=== PATIENT | female | born 1990 | race Caucasian/White ===

== ENCOUNTER 2022-02-05 11:59 | Inpatient (IN) | payer OTHER, SELFPAY ==
--- NOTE | ~2022-02-05 | CT_ITS ---
EXAMINATION: CT ABDOMEN AND PELVIS WITH CONTRAST CLINICAL INFORMATION: Abdominal pain. Change in bowel habits. COMPARISON: Three 1020 TECHNIQUE: Multidetector volumetric images were obtained from the superior aspect of the liver through the pubic symphysis following administration 85 mL of Omnipaque 350 intravenous contrast. Sagittal and coronal reformatted images were obtained on the technologist's workstation. Oral contrast: No This CT examination was performed using dose optimization techniques as appropriate, variously including the following: *Automated exposure control *Adjustment of mA and/or kV according to patient size (this includes techniques or standardized protocols for targeted exams where dose is matched to indication/reason for exam; i.e. extremities or head) *Use of iterative reconstruction technique DLP: 616 mGy-cm FINDINGS: LUNG BASES: The visualized lung bases are unremarkable. LIVER, GALLBLADDER, AND BILIARY TREE: The liver is normal in size, shape, and attenuation. Focal fatty infiltration along the falciform. No focal hepatic lesion or biliary ductal dilatation is present. The gallbladder is unremarkable with no evidence of radiopaque gallstones, gallbladder wall thickening, or obvious pericholecystic inflammatory changes. PANCREAS: Unremarkable. SPLEEN: Unremarkable. ADRENAL GLANDS: Unremarkable. KIDNEYS AND URETERS: The kidneys are normal in size, shape, and attenuation. No hydronephrosis, hydroureter, or calculi seen. No perinephric stranding. BLADDER: Unremarkable. GASTROINTESTINAL TRACT: The stomach is unremarkable. Normal caliber small bowel. No obstruction. Normal appendix. There is wall thickening of the left hemicolon. ABDOMINAL WALL: No significant hernia is appreciated. LYMPH NODES: Normal. VASCULAR: Unremarkable. PELVIC VISCERA: The uterus and adnexa are unremarkable. OSSEOUS STRUCTURES: Unremarkable. CT/CT abdomen pelvis w IV con IMPRESSION: Wall thickening of the left hemicolon suggestive of colitis, likely infectious or inflammatory. Fleischner guidelines were followed.
[2022-02-05 12:07] VITALS: BP 119/68; PULSE 82; RESP 18; O2SAT 98; BMI 34.2
[2022-02-05 13:12] LABS: MANUAL DIFF FLAG NO
[2022-02-05 13:17] LABS: Basophils Absolute Auto 0.1 X10*3/uL (0.0-0.2); Basophils Percent Auto 0.3 % (0-2); Eosinophils Absolute Auto 0.1 X10*3/uL (0.0-0.4); Eosinophils Percent Auto 0.8 % (0-4); Hemoglobin 14.3 g/dl (12.0-16.0); Imm Gran Abs Auto 0.06 X10*3/uL (0.00-0.03); Imm Gran Pct Auto 0.4 % (0.0-0.4); Lymphocytes Absolute Auto 2.6 X10*3/uL (1.2-4.9); Mean Corpuscular HGB Conc 32.5 g/dl (31.0-35.0); Mean Corpuscular Volume 83.2 fL (80.0-98.0); Mean Platelet Volume 11.3 fL (9.4-12.3); Monocytes Absolute Auto 1.2 X10*3/uL (0.1-1.2); Monocytes Percent Auto 7.7 % (2-11); Neutrophils Absolute Auto 11.4 x10*3/uL (2.0-8.3); Neutrophils Percent Auto 73.8 % (45-73); Platelet Count 341 X10*3/uL (160-400); Red Blood Count 5.29 X10*6/uL (4.20-5.50); Red Cell Distribution Width 14.1 % (11.0-16.0); White Blood Count 15.5 X10*3/uL (4.8-10.8)
[2022-02-05 13:32] LABS: Anion Gap 13 (12-20); Blood Urea Nitrogen 9 mg/dL (9-16); Calcium 9.4 mg/dL (8.4-10.2); Carbon Dioxide 22 mmol/L (22-29); Chloride 109 mmol/L (96-108); Creatinine Clr Calc Pharmacy 75.9; Estimated Glomerular Filt Rate > 60; Glucose Random 88 mg/dL (60-115); Potassium 4.1 mmol/L (3.3-5.1); Sodium 140 mmol/L (135-145)
[2022-02-05 20:47] VITALS: BP 105/73; PULSE 83; RESP 18; O2SAT 100
--- NOTE | 2022-02-05 21:31 | ED.GENADULT ---
HPI - General Adult General Chief complaint: Nausea/Vomiting/Diarrhea Stated complaint: Abd pain, blood in stool Time Seen by Provider: 02/05/22 21:29 Source: patient Mode of arrival: ambulatory Limitations: no limitations History of Present Illness HPI narrative: 31 year old female with a PMHx of depression who presents to the ED with diarrhea. The patient tells me that since November she has had persistent, worsening diarrhea, difuse weakness and fatigue, worse this week however. She currently has diarrhea about 10-15x per day and states that it is completely liquid, she states sometimes she feels bowel movements coming on so fast that she doesnt make it to the bathroom, due to how quickly it comes out and sudden urge. She also noted marielos blood in her stool yesterday, not today. She saw her PCP who tested her for C.diff with inconclusive results. She has received multiple courses of antibiotics for this including augmentin, cipro, vanco, and flagyl. She states that none of these have helped and that the diarrhea has become so bad that she sometimes cannot control her bowels. She also notes generalized abdominal pain and tells me she has lost 20lbs since November. She has had occasional chest pain as well, but denies chest pain currently. She denies any shortness of breath, fevers, chills, headaches, dizziness, changes in vision, extremity pain, or back pain. Related Data Allergies Allergy/AdvReac Type Severity Reaction Status Date / Time No Known Allergies Allergy Unverified 02/08/20 16:04 [No Known Allergies*] Review of Systems Review of Systems: Constitutional : No Weight loss, No Fever, No Chills, + Fatigue, + Malaise ENT/Mouth : No sore throat, No Rhinorrhea Eyes: No Eye Pain, No Swelling, No Redness Cardiovascular : No Chest Pain, No SOB, No Dyspnea on Exertion, No Orthopnea, No Edema, No Palpitations Respiratory : No Cough, No Sputum, No Wheezing Gastrointestinal : No Nausea, No Vomiting, + Diarrhea, No Constipation, + abdominal Pain, + Hematochezia, No Melena Genitourinary : No Dysuria, No Urinary Frequency, No Hematuria, Musculoskeletal : No joint pain, No Myalgias, No Joint Swelling Skin : No Skin Lesions, No rash Neuro : + Weakness, No Numbness, No Dizziness, No Headache Psych : No Anxiety/Panic, No Depression All other systems reviewed and are negative Yes all other systems are reviewed and are negative [facility] Past Medical History Attestation statement: The following information was validated with the patient. Source: old records reviewed and nursing notes reviewed Social History Social History Advance Directives: No Physical Exam ED Vital Signs: Vital Signs - 24 hr 02/05/22 12:07 02/05/22 20:47 02/06/22 00:00 Temperature 98.6 F Pulse Rate 82 83 71 Respiratory Rate 18 18 16 Blood Pressure 119/68 105/73 94/56 L Pulse Oximetry 98 100 100 Oxygen Delivery Method Room Air Room Air Room Air BMI result Body Mass Index 34.2 vss Appearance: Alert.? Oriented X3.? No acute distress.?Resting comfortably on stretcher, fatigued appearing. Head: Normocephalic, atraumatic, no step-offs or deformities Eyes: Pupils equal, round and reactive to light.? Neck: Normal inspection.? Neck supple.? CVS: Normal heart rate and rhythm.? Pulses normal.? Respiratory: No respiratory distress.? Breath sounds normal.? Abdomen: Soft. Mild, generalized tenderness.?No CVA tenderness. +BS. Skin: Skin warm and dry.? Normal skin color.? Normal skin turgor.? Extremities: No lower extremity edema.? No calf ttp. 5/5 strength to bilateral upper and lower extremities Neuro: Oriented X 3.? No motor deficit.? No sensory deficit. CN 2-12 intact Course Reevaluation(s) Reevaluation #1: Patient noted to have leukocytosis on CBC, however not concern for sepsis at this time. Chemistry at patient's baseline. CT abd/pelvis and stool studies pending. Time: 21:52 Reevaluation #2: Patient's stool studies pending, lactic and cultures, and CT of the abdomen and pelvis pending. I will wait to initiate antibiotics until stool samples are back as this can determine which antibiotic agent is preferred. Time: 00:11 Reevaluation #3: Latic negative. Patient noted to have C diff. will be given 125 mg of p.o. vancomycin, leukocytes in stool. CT scan pending. Patient's pressure soft, fluids ordered. Time: 01:18 Additional Reevaluation(s): 0129 CT of the abdomen and pelvis with wall thickening of the left chadwick colon suggestive of colitis, which is consistent with patient's history, physical examination and positive C diff test. Patient will be admitted to the hospitalist team for further intervention and treatment. Medical Decision Making MDM Narrative Medical decision making narrative: 21:45 31 y/o F presenting with 2 months of diarrhea and generalized abdominal pain. Has been on multiple abx including Augmentin, Cipro, Flagyl, Vanco. Inconclusive C.diff test per PCP. 20 lb weight loss since November. PE remarkable for tired appearing female, no acute distress. Mild generalized abdominal tenderness, no peritonitis. Plan to obtain basic labs, CT abd/pelvis, stool cultures. Suspect C.diff or other infectious colitis at this time. Less likely IBD such as UC or Crohn's. Medical Records Medical records reviewed: Yes I reviewed the patient's medical records. Lab Data Lab results reviewed: Yes I reviewed the patient's lab results. Result diagrams: 02/05/22 13:02/05/22 13:01 Labs: Lab Results 02/05/22 02/05/22 02/05/22 Range/Units 13:01 13:01 21:53 WBC 15.5 H (4.8-10.8) X10*3/uL RBC 5.29 (4.20-5.50) X10*6/uL Hgb 14.3 (12.0-16.0) g/dl Hct 44.0 (37.0-47.0) % MCV 83.2 (80.0-98.0) fL MCH 27.0 (27.0-33.0) pg MCHC 32.5 (31.0-35.0) g/dl RDW 14.1 (11.0-16.0) % Plt Count 341 (160-400) X10*3/uL MPV 11.3 (9.4-12.3) fL Immature Gran % (Auto) 0.4 (0.0-0.4) % Neut % (Auto) 73.8 H (45-73) % Lymph % (Auto) 17.0 L (20-40) % [place] % (Auto) 7.7 (2-11) % Eos % (Auto) 0.8 (0-4) % Baso % (Auto) 0.3 (0-2) % Lymph # (Auto) 2.6 (1.2-4.9) X10*3/uL [place] # (Auto) 1.2 (0.1-1.2) X10*3/uL Eos # (Auto) 0.1 (0.0-0.4) X10*3/uL Baso # (Auto) 0.1 (0.0-0.2) X10*3/uL Abs Immat Gran (auto) 0.06 H (0.00-0.03) X10*3/uL Absolute Neuts (auto) 11.4 H (2.0-8.3) x10*3/uL Absolute Nucleated RBC 0.000 (0.0-0.012) X10*3/uL Nucleated RBC % (auto) 0.0 (0.0-0.2) /100WBC Sodium 140 (135-145) mmol/L Potassium 4.1 (3.3-5.1) mmol/L Chloride 109 H (96-108) mmol/L Carbon Dioxide 22 (22-29) mmol/L Anion Gap 13 (12-20) BUN 9 (9-16) mg/dL Creatinine 1.00 (0.5-1.4) mg/dL Estim Creat Clear Calc 75.9 Estimated GFR > 60 Random Glucose 88 (60-115) mg/dL Lactic Acid (0.5-2.0) mmol/L Calcium 9.4 (8.4-10.2) mg/dL Total Bilirubin 0.3 (0.0-1.0) mg/dL Direct Bilirubin < 0.2 (0.0-0.5) mg/dL AST 15 (5-31) U/L ALT 22 (0-31) U/L Alkaline Phosphatase 64 (39-117) U/L C-Reactive Protein 0.72 H (< or = 0.50) mg/dL Total Protein 6.9 (6.5-8.0) g/dL Albumin 4.0 (3.5-5.0) g/dL Lipase 22 (8-78) U/L Beta HCG, Quant < 2 mIU/mL Urine Color Dark Yellow Urine Appearance Cloudy Urine pH 5.5 (5.0-9.0) Ur Specific [place] >= 1.030 H (1.005-1.025) Urine Protein Trace (Neg-Trace) mg/dL Urine Glucose (UA) Negative (Negative) mg/dL Urine Ketones 15 (Negative) mg/dL Urine Blood Negative (Negative) Urine Nitrite Negative (Negative) Ur Leukocyte Esterase Small (1+) H (Negative) Urine RBC 0-2 (0-2) /HPF Urine WBC 11-20 H (0-5) /HPF Ur Squamous Epith Cells 11-20 (0-2) /HPF Calcium Oxalate Crystal Present Urine Bacteria 2+ (None Seen) Hyaline Casts 3-5 (0-2) /LPF Urine Test (NEGATIVE) Stool Leukocytes, Qual (NEGATIVE) C. difficile Tox B Gene (Negative) C. difficile Toxin A&B (Negative) C. difficile Interpret 02/05/22 02/05/22 02/05/22 Range/Units 21:53 23:31 23:31 WBC (4.8-10.8) X10*3/uL RBC (4.20-5.50) X10*6/uL Hgb (12.0-16.0) g/dl Hct (37.0-47.0) % MCV (80.0-98.0) fL MCH (27.0-33.0) pg MCHC (31.0-35.0) g/dl RDW (11.0-16.0) % Plt Count (160-400) X10*3/uL MPV (9.4-12.3) fL Immature Gran % (Auto) (0.0-0.4) % Neut % (Auto) (45-73) % Lymph % (Auto) (20-40) % [place] % (Auto) (2-11) % Eos % (Auto) (0-4) % Baso % (Auto) (0-2) % Lymph # (Auto) (1.2-4.9) X10*3/uL [place] # (Auto) (0.1-1.2) X10*3/uL Eos # (Auto) (0.0-0.4) X10*3/uL Baso # (Auto) (0.0-0.2) X10*3/uL Abs Immat Gran (auto) (0.00-0.03) X10*3/uL Absolute Neuts (auto) (2.0-8.3) x10*3/uL Absolute Nucleated RBC (0.0-0.012) X10*3/uL Nucleated RBC % (auto) (0.0-0.2) /100WBC Sodium (135-145) mmol/L Potassium (3.3-5.1) mmol/L Chloride (96-108) mmol/L Carbon Dioxide (22-29) mmol/L Anion Gap (12-20) BUN (9-16) mg/dL Creatinine (0.5-1.4) mg/dL Estim Creat Clear Calc Estimated GFR Random Glucose (60-115) mg/dL Lactic Acid (0.5-2.0) mmol/L Calcium (8.4-10.2) mg/dL Total Bilirubin (0.0-1.0) mg/dL Direct Bilirubin (0.0-0.5) mg/dL AST (5-31) U/L ALT (0-31) U/L Alkaline Phosphatase (39-117) U/L C-Reactive Protein (< or = 0.50) mg/dL Total Protein (6.5-8.0) g/dL Albumin (3.5-5.0) g/dL Lipase (8-78) U/L Beta HCG, Quant mIU/mL Urine Color Urine Appearance Urine pH (5.0-9.0) Ur Specific [place] (1.005-1.025) Urine Protein (Neg-Trace) mg/dL Urine Glucose (UA) (Negative) mg/dL Urine Ketones (Negative) mg/dL Urine Blood (Negative) Urine Nitrite (Negative) Ur Leukocyte Esterase (Negative) Urine RBC (0-2) /HPF Urine WBC (0-5) /HPF Ur Squamous Epith Cells (0-2) /HPF Calcium Oxalate Crystal Urine Bacteria (None Seen) Hyaline Casts (0-2) /LPF Urine Test NEGATIVE (NEGATIVE) Stool Leukocytes, Qual MOD: 3-9/OIF (NEGATIVE) C. difficile Tox B Gene POSITIVE A* (Negative) C. difficile Toxin A&B Positive A* (Negative) C. difficile Interpret SEE NOTE 02/06/22 Range/Units 00:27 WBC (4.8-10.8) X10*3/uL RBC (4.20-5.50) X10*6/uL Hgb (12.0-16.0) g/dl Hct (37.0-47.0) % MCV (80.0-98.0) fL MCH (27.0-33.0) pg MCHC (31.0-35.0) g/dl RDW (11.0-16.0) % Plt Count (160-400) X10*3/uL MPV (9.4-12.3) fL Immature Gran % (Auto) (0.0-0.4) % Neut % (Auto) (45-73) % Lymph % (Auto) (20-40) % [place] % (Auto) (2-11) % Eos % (Auto) (0-4) % Baso % (Auto) (0-2) % Lymph # (Auto) (1.2-4.9) X10*3/uL [place] # (Auto) (0.1-1.2) X10*3/uL Eos # (Auto) (0.0-0.4) X10*3/uL Baso # (Auto) (0.0-0.2) X10*3/uL Abs Immat Gran (auto) (0.00-0.03) X10*3/uL Absolute Neuts (auto) (2.0-8.3) x10*3/uL Absolute Nucleated RBC (0.0-0.012) X10*3/uL Nucleated RBC % (auto) (0.0-0.2) /100WBC Sodium (135-145) mmol/L Potassium (3.3-5.1) mmol/L Chloride (96-108) mmol/L Carbon Dioxide (22-29) mmol/L Anion Gap (12-20) BUN (9-16) mg/dL Creatinine (0.5-1.4) mg/dL Estim Creat Clear Calc Estimated GFR Random Glucose (60-115) mg/dL Lactic Acid 0.5 (0.5-2.0) mmol/L Calcium (8.4-10.2) mg/dL Total Bilirubin (0.0-1.0) mg/dL Direct Bilirubin (0.0-0.5) mg/dL AST (5-31) U/L ALT (0-31) U/L Alkaline Phosphatase (39-117) U/L C-Reactive Protein (< or = 0.50) mg/dL Total Protein (6.5-8.0) g/dL Albumin (3.5-5.0) g/dL Lipase (8-78) U/L Beta HCG, Quant mIU/mL Urine Color Urine Appearance Urine pH (5.0-9.0) Ur Specific [place] (1.005-1.025) Urine Protein (Neg-Trace) mg/dL Urine Glucose (UA) (Negative) mg/dL Urine Ketones (Negative) mg/dL Urine Blood (Negative) Urine Nitrite (Negative) Ur Leukocyte Esterase (Negative) Urine RBC (0-2) /HPF Urine WBC (0-5) /HPF Ur Squamous Epith Cells (0-2) /HPF Calcium Oxalate Crystal Urine Bacteria (None Seen) Hyaline Casts (0-2) /LPF Urine Test (NEGATIVE) Stool Leukocytes, Qual (NEGATIVE) C. difficile Tox B Gene (Negative) C. difficile Toxin A&B (Negative) C. difficile Interpret Critical Care Time Critical Care Time Critical Care Time: Yes Total Critical Care Time: 35 Attestation: I attest to this time spent taking care of the patient, obtaining history, physical, reviewing labs, imaging, speaking to my attending, Discharge Plan Discharge Clinical Impression: Clostridium difficile infection, Diarrhea, Abdominal pain, Fatigue, Weakness Patient Disposition: Admitted As Inpatient
[2022-02-05 22:03] LABS: Appearance Urine Cloudy; Color Urine Dark Yellow; Glucose Urine UA Negative (Negative); Leukocyte Esterase Urine Small (1+) (Negative); Nitrite Urine Negative (Negative); PH 5.5 (5.0-9.0); Specific Gravity - Urine >= 1.030 (1.005-1.025); UMIC TRIGGER UACC YES; Urine Blood Negative (Negative); Urine Ketones 15 mg/dL (Negative); Urine Protein Trace mg/dL (Neg-Trace)
[2022-02-05 22:06] LABS: UPreg QC Valid YES; Urine Pregnancy NEGATIVE (NEGATIVE)
--- NOTE | 2022-02-05 22:25 | ECG_ITS ---
Test Reason : A/P Blood Pressure : / mmHG Vent. Rate : 069 BPM Atrial Rate : 069 BPM P-R Int : 170 ms QRS Dur : 072 ms QT Int : 390 ms P-R-T Axes : 047 059 040 degrees QTc Int : 417 ms Normal sinus rhythm Normal ECG When compared with ECG of 04-AUG-2019 00:01, No significant change was found Referred By: Esteban Shannon Electronically Signed By:CARRINGTON CHAPMAN
[2022-02-05 22:40] LABS: Bacteria Urine 2+ (None Seen); Calcium Oxalate Crystals Urine Present; RBC Urine 0-2 /HPF (0-2); UACC Culture Trigger YES
[2022-02-05 22:43] LABS: HCG Quantitative < 2 mIU/mL
[2022-02-05 22:44] LABS: Alanine Aminotransferase 22 U/L (0-31); Alkaline Phosphatase 64 U/L (39-117); Aspartate Amino Transferase 15 U/L (5-31); Bilirubin Direct < 0.2 mg/dL (0.0-0.5); Bilirubin Total 0.3 mg/dL (0.0-1.0); Lipase 22 U/L (8-78); Total Protein 6.9 g/dL (6.5-8.0)
--- NOTE | 2022-02-05 23:00 | P.HPHOSP_ITS ---
History of Present Illness Date of Service: 02/05/22 Chief Complaint: diarrhea 31-year-old female with a past medical history of anxiety, depression presented to the hospital with a chief complaint of diarrhea. Patient reports that in November she had cellulitis and was on Augmentin; followed by she started to have diarrhea which has been not improving or worsens. Has intermittent episodes of diarrhea and has few days of resolution in between. Was treated for presumed C diff as outpatient in December of 2021. This time patient reports he has been having diarrhea for the past 1 week. Has been gradually worsening. Has intermittent episodes of crampy abdominal pain. Also has nausea and vomiting. Has decreased oral intake for the past 2 days. Denies any chest pain or palpitations. Reports she noted blood in her stool yesterday and today she has slightly decreased blood in the stool. Quantity was small in both episodes. Denies any concerns for food poisoning. Denies any fever chills cough or sputum production. Review of all other systems is negative except mentioned above ER course: Per ER team patient noted to have mild diffuse abdominal tenderness; CT scan showed colitis. C diff came back positive. Patient was given p.o. vancomycin. Admitted to the hospital for further management. [facility] Social History Advance Directives: No Meds Allergies Allergy/AdvReac Type Severity Reaction Status Date / Time No Known Allergies Allergy Unverified 02/08/20 16:04 [No Known Allergies*] Active Medications: Current Medications Acetaminophen (Acetaminophen 325 Mg Tablet) 650 mg PO Q6H PRN PRN Reason: Pain, Mild (Pain Scale 1-3) Famotidine (Famotidine/Pf 20 Mg/2 Ml Vial) 20 mg IVPUSH BID [facility] Dextrose/Sodium Chloride (D51/2ns) 1,000 mls @ 100 mls/hr IVCONT .Q10H [facility] Melatonin (Melatonin 3 Mg Tablet) 6 mg PO BEDTIME PRN PRN Reason: Insomnia Senna (Sennosides 8.6 Mg Tablet) 17.2 mg PO BEDTIME PRN PRN Reason: Constipation Sodium Chloride (0.9 % Sodium Chloride Flush 3 Ml Syringe) 3 ml IVFLUSH QSHIFT [facility] Physical Exam Vital Signs and Narrative: Vital Signs: Last Vital Signs Pulse 83 09/15/22 20:47 Resp 18 02/05/22 20:47 BP 105/73 02/05/22 20:47 Pulse Ox 100 02/05/22 20:47 O2 Del Method 02/05/22 20:47 BMI result Body Mass Index 34.2 Gen: Appears be in no acute distress HEENT: NCAT, Moist mucosa. Pulmonary: Vesicular breath sounds, fair air entry CVS: Normal S1-S2 Abdomen: BS+, Soft, Mildly tender diffusely, no guarding no rigidity Extremities: Warm well perfused Neuro: Alert and awake. Results Labs CBC and Chem 7: 02/05/22 13:01 02/06/22 01:43 Labs: Laboratory Results - last 24 hr 02/05/22 02/05/22 02/05/22 13:01 13:01 21:53 MCV 83.2 MCH 27.0 MCHC 32.5 RDW 14.1 Plt Count 341 MPV 11.3 Immature Gran % (Auto) 0.4 Neut % (Auto) 73.8 H Lymph % (Auto) 17.0 L [place] % (Auto) 7.7 Eos % (Auto) 0.8 Baso % (Auto) 0.3 Lymph # (Auto) 2.6 [place] # (Auto) 1.2 Eos # (Auto) 0.1 Baso # (Auto) 0.1 Abs Immat Gran (auto) 0.06 H Absolute Neuts (auto) 11.4 H Absolute Nucleated RBC 0.000 Nucleated RBC % (auto) 0.0 Anion Gap 13 Estim Creat Clear Calc 75.9 Estimated GFR > 60 Random Glucose 88 Calcium 9.4 Total Bilirubin 0.3 Direct Bilirubin < 0.2 AST 15 ALT 22 Alkaline Phosphatase 64 Total Protein 6.9 Albumin 4.0 Lipase 22 Beta HCG, Quant < 2 Urine Color Dark Yellow Urine Appearance Cloudy Urine pH 5.5 Ur Specific [place] >= 1.030 H Urine Protein Trace Urine Glucose (UA) Negative Urine Ketones 15 Urine Blood Negative Urine Nitrite Negative Ur Leukocyte Esterase Small (1+) H Urine RBC 0-2 Urine WBC 11-20 H Ur Squamous Epith Cells 11-20 Calcium Oxalate Crystal Present Urine Bacteria 2+ Hyaline Casts 3-5 Urine Test 02/05/22 21:53 MCV MCH MCHC RDW Plt Count MPV Immature Gran % (Auto) Neut % (Auto) Lymph % (Auto) [place] % (Auto) Eos % (Auto) Baso % (Auto) Lymph # (Auto) [place] # (Auto) Eos # (Auto) Baso # (Auto) Abs Immat Gran (auto) Absolute Neuts (auto) Absolute Nucleated RBC Nucleated RBC % (auto) Anion Gap Estim Creat Clear Calc Estimated GFR Random Glucose Calcium Total Bilirubin Direct Bilirubin AST ALT Alkaline Phosphatase Total Protein Albumin Lipase Beta HCG, Quant Urine Color Urine Appearance Urine pH Ur Specific [place] Urine Protein Urine Glucose (UA) Urine Ketones Urine Blood Urine Nitrite Ur Leukocyte Esterase Urine RBC Urine WBC Ur Squamous Epith Cells Calcium Oxalate Crystal Urine Bacteria Hyaline Casts Urine Test NEGATIVE Assessment and Plan (1) Clostridium difficile infection: Status: Acute Plan 31-year-old female with a past medical history of anxiety, depression presented to the hospital with a chief complaint of diarrhea. noted to have clustered in difficile colitis. Admitted for further management. C diff colitis: Continue p.o. vancomycin. Patient was recently treated for presumed C diff in December of 2021 with p.o. vancomycin. Id consult. Patient also reported blood in the stool-GI consult. CT scan showed left; colitis. Pain control DVT prophylaxis: SCD boots Code status: Full code Quality Stroke Does the patient have a stroke diagnosis?: No VTE Prior VTE?: No VTE Risk Level:: Medical - moderate - high VTE Device Contraindication: Treatment Not Indicated VTE Drug Contraindication: N/A - Med Ordered
[2022-02-05 23:16] LABS: C Reactive Protein 0.72 mg/dL (< or = 0.50)
[2022-02-05] MEDS: 0.9 % Sodium Chloride 1,000 ML 999 ML IV (23:33)
[2022-02-06] VITALS (8 sets, daily range): BP systolic 93–105; BP diastolic 49–68; PULSE 71–92; RESP 14–20; TEMP 36.6–37; O2SAT 90–100; BMI 31.1
[2022-02-06 00:44] LABS: Lactic Acid 0.5 mmol/L (0.5-2.0)
[2022-02-06 00:44] LABS: Leukocytes Stool Qualitative MOD: 3-9/OIF (NEGATIVE)
[2022-02-06 00:48] LABS: CDiff Gene PCR POSITIVE (Negative)
[2022-02-06] MEDS: iohexoL 350 MG/ML 100 ML INFUS..BTL IV (00:58)
[2022-02-06] MEDS: Acetaminophen 325 MG TABLET 650 MG PO (01:00)
[2022-02-06] MEDS: Dextrose 5 % and 0.45 % NaCl 1,000 ML 100 ML IVCONT ×3 (01:03→20:42)
[2022-02-06 01:20] LABS: CDIFF Internal ctrl Dots and bkg OK (V); CDiff Toxin Positive (Negative)
[2022-02-06 02:10] LABS: Troponin-I High Sensitivity < 3.5 ng/L (<3.5-17.0)
[2022-02-06 02:13] LABS: Alanine Aminotransferase 20 U/L (0-31); Albumin Level 3.5 g/dL (3.5-5.0); Alkaline Phosphatase 59 U/L (39-117); Anion Gap 15 (12-20); Aspartate Amino Transferase 13 U/L (5-31); Bilirubin Total 0.2 mg/dL (0.0-1.0); Blood Urea Nitrogen 9 mg/dL (9-16); Calcium 8.3 mg/dL (8.4-10.2); Carbon Dioxide 17 mmol/L (22-29); Chloride 110 mmol/L (96-108); Creatinine Clr Calc Pharmacy 76.8; Estimated Glomerular Filt Rate > 60; Glucose Random 79 mg/dL (60-115); Potassium 3.7 mmol/L (3.3-5.1); Sodium 138 mmol/L (135-145)
[2022-02-06] MEDS: vancomycin HCL 125 MG CAPSULE PO ×4 (02:47→20:43)
[2022-02-06] MEDS: 0.9 % Sodium Chloride 1,000 ML 999 ML IV (02:50)
[2022-02-06 03:17] LABS: COVID-19 Test Negative (Negative)
[2022-02-06 06:54] LABS: MANUAL DIFF FLAG NO
[2022-02-06 06:57] LABS: Basophils Percent Auto 0.3 % (0-2); Eosinophils Absolute Auto 0.1 X10*3/uL (0.0-0.4); Eosinophils Percent Auto 1.5 % (0-4); Hematocrit 38.7 % (37.0-47.0); Imm Gran Abs Auto 0.03 X10*3/uL (0.00-0.03); Imm Gran Pct Auto 0.3 % (0.0-0.4); Lymphocytes Absolute Auto 2.4 X10*3/uL (1.2-4.9); Mean Corpuscular HGB Conc 33.6 g/dl (31.0-35.0); Mean Corpuscular Hemoglobin 27.5 pg (27.0-33.0); Mean Platelet Volume 10.9 fL (9.4-12.3); Monocytes Absolute Auto 0.8 X10*3/uL (0.1-1.2); Neutrophils Absolute Auto 5.4 x10*3/uL (2.0-8.3); Neutrophils Percent Auto 61.9 % (45-73); Platelet Count 266 X10*3/uL (160-400); Red Blood Count 4.72 X10*6/uL (4.20-5.50); Red Cell Distribution Width 13.9 % (11.0-16.0); White Blood Count 8.8 X10*3/uL (4.8-10.8)
[2022-02-06 07:15] LABS: Anion Gap 12 (12-20); Blood Urea Nitrogen 8 mg/dL (9-16); Calcium 8.4 mg/dL (8.4-10.2); Carbon Dioxide 20 mmol/L (22-29); Chloride 110 mmol/L (96-108); Creatinine Clr Calc Pharmacy 78.3; Estimated Glomerular Filt Rate > 60; Glucose Random 97 mg/dL (60-115); Sodium 138 mmol/L (135-145)
[2022-02-06] MEDS: 0.9 % Sodium Chloride Flush 3 ML SYRINGE IVFLUSH (08:13)
[2022-02-06] MEDS: Famotidine/PF 20 MG/2 ML VIAL IVPUSH (08:13)
--- NOTE | 2022-02-06 08:49 | PHA.MEDREC ---
Pharmacy Consult ? Medication Reconciliation Pharmacy has completed the medication reconciliation.
--- NOTE | 2022-02-06 11:10 | MHC.CM.PN ---
met with pt and her mother pt is independent has no outside services and does not anticipate needing services when dcd
--- NOTE | 2022-02-06 12:12 | PC.NURSE ---
report given to CAITIE Aponte. pt will be transferred to room 473 by transporter. pt aware of plan. remains npo until GI consult.
--- NOTE | 2022-02-06 14:17 | HO.PM.IMPN ---
Subjective Subjective Date of Service: 02/06/22 Interval History: No acute issues overnight. Continues with diarrhea Review of Systems Denies chest pain Denies shortness of breath Denies fever chills admits to nausea and diarrhea Physical Exam Vital Signs: Vital Signs: Last Vital Signs Temp 98.0 F 02/06/22 04:00 Pulse 73 02/06/22 07:23 Resp 14 02/06/22 07:23 BP 94/49 L 02/06/22 07:23 Pulse Ox 98 02/06/22 07:23 O2 Del Method 02/06/22 07:23 BMI result Body Mass Index 34.2 Const: Other: No acute issues Resp: Other: Clear to auscultation bilaterally no rales rhonchi wheezes Cardio: Other: No S4; positive S1-S2; no S3 murmurs rubs or gallops GI: Other: Soft nontender nondistended. No overt peritoneal signs Extrem: Other: No edema bilaterally Objective Data Active Medications Acetaminophen (Acetaminophen 325 Mg Tablet) 650 mg PO Q6H PRN PRN Reason: Pain, Mild (Pain Scale 1-3) Last Admin: 02/06/22 01:00 Dose: 650 mg Documented By: DAWNA Buspirone HCl (Buspirone Hcl 5 Mg Tablet) 7.5 mg PO TID [facility] Famotidine (Famotidine/Pf 20 Mg/2 Ml Vial) 20 mg IVPUSH BID [facility] Last Admin: 02/06/22 08:13 Dose: 20 mg Documented By: TODD Dextrose/Sodium Chloride (D51/2ns) 1,000 mls @ 100 mls/hr IVCONT .Q10H [facility] Last Admin: 02/06/22 09:52 Dose: 100 mls/hr Documented By: LESLIE Melatonin (Melatonin 3 Mg Tablet) 6 mg PO BEDTIME PRN PRN Reason: Insomnia Multivitamins/Vitamin C (Multivitamin Tablet) 1 tab PO DAILY [facility] Non-Formulary Medication (Norgestimate-Ethinyl Estradiol [Avelina]) 1 tab PO DAILY [facility] Pharmacy Consult (Consult Rx Perform Med Rec) 1 each MISCELLANE ONCE PRN PRN Reason: Consult order Senna (Sennosides 8.6 Mg Tablet) 17.2 mg PO BEDTIME PRN PRN Reason: Constipation Sodium Chloride (0.9 % Sodium Chloride Flush 3 Ml Syringe) 3 ml IVFLUSH QSHIFT [facility] Last Admin: 02/06/22 08:13 Dose: 3 ml Documented By: TODD Topiramate (Topiramate 100 Mg Tablet) 100 mg PO BEDTIME [facility] Vancomycin HCl (Vancomycin Hcl 125 Mg Capsule) 125 mg PO Q6H [facility] Last Admin: 02/06/22 08:13 Dose: 125 mg Documented By: TODD Venlafaxine HCl (Venlafaxine Hcl Er 150 Mg Cap.Er.24h) 150 mg PO BID [facility] Labs CBC & Chem 7: 02/06/22 06:34 02/06/22 06:34 Labs: Laboratory Results - last 24 hr 02/05/22 02/05/22 02/05/22 13:01 21:53 21:53 MCV MCH MCHC RDW Plt Count MPV Immature Gran % (Auto) Neut % (Auto) Lymph % (Auto) Foster % (Auto) Eos % (Auto) Baso % (Auto) Lymph # (Auto) Foster # (Auto) Eos # (Auto) Baso # (Auto) Abs Immat Gran (auto) Absolute Neuts (auto) Absolute Nucleated RBC Nucleated RBC % (auto) Anion Gap Estim Creat Clear Calc Estimated GFR Random Glucose Lactic Acid Calcium Total Bilirubin 0.3 Direct Bilirubin < 0.2 AST 15 ALT 22 Alkaline Phosphatase 64 C-Reactive Protein 0.72 H Total Protein 6.9 Albumin 4.0 Lipase 22 Beta HCG, Quant < 2 Urine Color Dark Yellow Urine Appearance Cloudy Urine pH 5.5 Ur Specific [place] >= 1.030 H Urine Protein Trace Urine Glucose (UA) Negative Urine Ketones 15 Urine Blood Negative Urine Nitrite Negative Ur Leukocyte Esterase Small (1+) H Urine RBC 0-2 Urine WBC 11-20 H Ur Squamous Epith Cells 11-20 Calcium Oxalate Crystal Present Urine Bacteria 2+ Hyaline Casts 3-5 Urine Test NEGATIVE Stool Leukocytes, Qual C. difficile Tox B Gene C. difficile Toxin A&B C. difficile Interpret COVID-19 (NED) COVID-19 Clin Com 02/05/22 02/05/22 02/06/22 23:31 23:31 00:27 MCV MCH MCHC RDW Plt Count MPV Immature Gran % (Auto) Neut % (Auto) Lymph % (Auto) Foster % (Auto) Eos % (Auto) Baso % (Auto) Lymph # (Auto) Foster # (Auto) Eos # (Auto) Baso # (Auto) Abs Immat Gran (auto) Absolute Neuts (auto) Absolute Nucleated RBC Nucleated RBC % (auto) Anion Gap Estim Creat Clear Calc Estimated GFR Random Glucose Lactic Acid 0.5 Calcium Total Bilirubin Direct Bilirubin AST ALT Alkaline Phosphatase C-Reactive Protein Total Protein Albumin Lipase Beta HCG, Quant Urine Color Urine Appearance Urine pH Ur Specific [place] Urine Protein Urine Glucose (UA) Urine Ketones Urine Blood Urine Nitrite Ur Leukocyte Esterase Urine RBC Urine WBC Ur Squamous Epith Cells Calcium Oxalate Crystal Urine Bacteria Hyaline Casts Urine Test Stool Leukocytes, Qual MOD: 3-9/OIF C. difficile Tox B Gene POSITIVE A* C. difficile Toxin A&B Positive A* C. difficile Interpret SEE NOTE COVID-19 (NED) COVIDGLSS 02/06/22 02/06/22 02/06/22 01:43 02:53 06:34 MCV 82.0 MCH 27.5 MCHC 33.6 RDW 13.9 Plt Count 266 MPV 10.9 Immature Gran % (Auto) 0.3 Neut % (Auto) 61.9 Lymph % (Auto) 27.0 Foster % (Auto) 9.0 Eos % (Auto) 1.5 Baso % (Auto) 0.3 Lymph # (Auto) 2.4 Foster # (Auto) 0.8 Eos # (Auto) 0.1 Baso # (Auto) 0.0 Abs Immat Gran (auto) 0.03 Absolute Neuts (auto) 5.4 Absolute Nucleated RBC 0.000 Nucleated RBC % (auto) 0.0 Anion Gap 15 Estim Creat Clear Calc 76.8 Estimated GFR > 60 Random Glucose 79 Lactic Acid Calcium 8.3 L D Total Bilirubin 0.2 Direct Bilirubin AST 13 ALT 20 Alkaline Phosphatase 59 C-Reactive Protein Total Protein 6.0 L Albumin 3.5 Lipase Beta HCG, Quant Urine Color Urine Appearance Urine pH Ur Specific [place] Urine Protein Urine Glucose (UA) Urine Ketones Urine Blood Urine Nitrite Ur Leukocyte Esterase Urine RBC Urine WBC Ur Squamous Epith Cells Calcium Oxalate Crystal Urine Bacteria Hyaline Casts Urine Test Stool Leukocytes, Qual C. difficile Tox B Gene C. difficile Toxin A&B C. difficile Interpret COVID-19 (NED) Negative COVID-Cool Lumens Com See Note 02/06/22 06:34 MCV MCH MCHC RDW Plt Count MPV Immature Gran % (Auto) Neut % (Auto) Lymph % (Auto) Foster % (Auto) Eos % (Auto) Baso % (Auto) Lymph # (Auto) Foster # (Auto) Eos # (Auto) Baso # (Auto) Abs Immat Gran (auto) Absolute Neuts (auto) Absolute Nucleated RBC Nucleated RBC % (auto) Anion Gap 12 Estim Creat Clear Calc 78.3 Estimated GFR > 60 Random Glucose 97 Lactic Acid Calcium 8.4 Total Bilirubin Direct Bilirubin AST ALT Alkaline Phosphatase C-Reactive Protein Total Protein Albumin Lipase Beta HCG, Quant Urine Color Urine Appearance Urine pH Ur Specific [place] Urine Protein Urine Glucose (UA) Urine Ketones Urine Blood Urine Nitrite Ur Leukocyte Esterase Urine RBC Urine WBC Ur Squamous Epith Cells Calcium Oxalate Crystal Urine Bacteria Hyaline Casts Urine Test Stool Leukocytes, Qual C. difficile Tox B Gene C. difficile Toxin A&B C. difficile Interpret COVID-19 (NED) COVID-19 Clin Com Assessment and Plan (1) Clostridium difficile infection: Status: Acute Plan 31-year-old female with a past medical history of anxiety, depression presented to the hospital with a chief complaint of diarrhea. noted to have clustered in difficile colitis. Admitted for further management. 1.C diff colitis: -Continue p.o. vancomycin. -await GI/ID input DVT prophylaxis: SCD boots Code status: Full code Requires ongoing hospitalization for IV volume repletion related to C diff diarrhea Quality Stroke Does the patient have a stroke diagnosis?: No VTE Prior VTE?: No VTE Risk Level:: Medical - moderate - high VTE Device Contraindication: Treatment Not Indicated VTE Drug Contraindication: N/A - Med Ordered
[2022-02-06] MEDS: busPIRone HCl 5 MG TABLET 7.5 MG PO ×2 (15:09→20:43)
--- NOTE | 2022-02-06 16:37 | W.PM.IDCN ---
History of Present Illness Data of Consult Service Date: 02/06/22 Requesting physician: Ruiz Batista Primary Care Provider: Unknown Physician HPI Reason for consult: diarrhea,persistent She presents with abdominal cramping,5/10 and diarrhea 10-15 times a day for two months. She has had multiple antibiotics including Augmentin,Cipro and Vancomycin. Vancomycin helped somewhat she says but it came right back. Review of Systems Review of Systems: Yes all other systems are reviewed and are negative PMFSH Family History Family history: reviewed and not pertinent Social History Social History Household Members: Family Housing: House Do you presently have visiting nurse or other home services: No Patient Tobacco Use Status: Never used Tobacco Use of substances other than those prescribed or required for medical reasons: Yes Substance Use Type: Marijuana Substance Use Frequency: Weekly Currently Displaying Signs/Symptoms of Drug Intoxication Withdrawal: No Have you been hit, kicked, punched, or otherwise hurt by someone within the past year? If so, by whom?: No Do you feel safe in your current relationship?: No Is there a partner from a previous relationship who is making you feel unsafe now?: No Are you made to feel afraid or neglected: No Advance Directives: No Do you have thoughts of harming others: None Do you have a plan to hurt others: No Plan Recently lost weight without trying: Yes How much weight loss: 24-33 pounds Eating poorly because of decreased appetite: No Nutrition screen score: 5 Nutrition Risks: Poor intake 0-25% >4 days Patient : No service: No Meds Allergies Allergy/AdvReac Type Severity Reaction Status Date / Time No Known Allergies Allergy Unverified 02/08/20 16:04 [No Known Allergies*] Active Medications: Current Medications Acetaminophen (Acetaminophen 325 Mg Tablet) 650 mg PO Q6H PRN PRN Reason: Pain, Mild (Pain Scale 1-3) Last Admin: 02/06/22 01:00 Dose: 650 mg Buspirone HCl (Buspirone Hcl 5 Mg Tablet) 7.5 mg PO TID [facility] Last Admin: 02/06/22 15:09 Dose: 7.5 mg Famotidine (Famotidine/Pf 20 Mg/2 Ml Vial) 20 mg IVPUSH BID [facility] Last Admin: 02/06/22 08:13 Dose: 20 mg Dextrose/Sodium Chloride (D51/2ns) 1,000 mls @ 100 mls/hr IVCONT .Q10H [facility] Last Admin: 02/06/22 09:52 Dose: 100 mls/hr Melatonin (Melatonin 3 Mg Tablet) 6 mg PO BEDTIME PRN PRN Reason: Insomnia Multivitamins/Vitamin C (Multivitamin Tablet) 1 tab PO DAILY [facility] Pt Own (Norgestimate -Ethinyl Estradiol [ Avelina] 0.25-35 Mg-Mcg Tablet) 1 tab PO BEDTIME [facility] Pharmacy Consult (Consult Rx Perform Med Rec) 1 each MISCELLANE ONCE PRN PRN Reason: Consult order Senna (Sennosides 8.6 Mg Tablet) 17.2 mg PO BEDTIME PRN PRN Reason: Constipation Sodium Chloride (0.9 % Sodium Chloride Flush 3 Ml Syringe) 3 ml IVFLUSH QSHIFT [facility] Last Admin: 02/06/22 08:13 Dose: 3 ml Topiramate (Topiramate 100 Mg Tablet) 100 mg PO BEDTIME [facility] Vancomycin HCl (Vancomycin Hcl 125 Mg Capsule) 125 mg PO Q6H [facility] Last Admin: 02/06/22 15:09 Dose: 125 mg Venlafaxine HCl (Venlafaxine Hcl Er 150 Mg Cap.Er.24h) 150 mg PO BID [facility] Home Medications Medication Instructions Recorded Confirmed Last Taken Type buspirone 7.5 mg tablet 1 tab PO TID 02/06/22 02/06/22 02/05/22 History multivitamin 1 tab PO DAILY 02/06/22 02/06/22 02/05/22 History norgestimate 0.25 mg-ethinyl 1 tab PO DAILY 02/06/22 02/06/22 02/05/22 History estradiol 35 mcg tablet (Avelina) topiramate 100 mg tablet 1 tab PO BEDTIME 02/06/22 02/06/22 02/05/22 History topiramate 200 mg tablet 1 tab PO BEDTIME 02/06/22 02/06/22 02/05/22 History venlafaxine 150 mg 1 cap PO BID 02/06/22 02/06/22 02/05/22 History capsule,extended release 24 hr Physical Exam Vital Signs: Vital Signs: Last Vital Signs Temp 97.9 F 02/06/22 15:06 Pulse 92 02/06/22 15:06 Resp 18 02/06/22 15:06 BP 105/58 L 02/06/22 15:06 Pulse Ox 98 02/06/22 15:06 O2 Del Method 02/06/22 15:06 O2 Flow Rate 2 02/06/22 15:04 BMI result Body Mass Index 31.1 Const: General: cooperative HEENT: Head: Yes normal to inspection Face and sinus: Yes normal facial exam Mouth: Normal oral and palatal mucosa present Teeth and gingiva: dentition normal Eyes: General: appearance normal, both eyes and all related structures Pupils: Equal, round and reactive pupils present Resp: Effort & Inspection: normal respiratory effort Cardio: Rate: regular rate Rhythm: regular rhythm GI: Palpation (GI): Soft to palpation and Tenderness to palpation present (GI) (LLQ) : General: Yes no CVA tenderness Back/Spine/Pelvis: Back: no CVA tenderness Skin: General skin exam: no rashes or lesions noted Neuro: General: moves all extremities Cranial nerves: Yes Equal, round and reactive pupils present Extrem: General: Yes normal to inspection Psych: Appearance: grossly normal Results Labs CBC & Chem 7: 02/06/22 06:34 02/06/22 06:34 Labs: Short CBC 02/06/22 Range/Units 06:34 WBC 8.8 (4.8-10.8) X10*3/uL Hgb 13.0 (12.0-16.0) g/dl Hct 38.7 (37.0-47.0) % Plt Count 266 (160-400) X10*3/uL BMP 02/06/22 02/06/22 01:43 06:34 Sodium 138 138 Potassium 3.7 4.0 Chloride 110 H 110 H Carbon Dioxide 17 L 20 L BUN 9 8 L Creatinine 0.99 0.97 Calcium 8.3 L D 8.4 Liver Function 02/05/22 02/06/22 Range/Units 13:01 01:43 Total Bilirubin 0.3 0.2 (0.0-1.0) mg/dL Direct Bilirubin < 0.2 (0.0-0.5) mg/dL AST 15 13 (5-31) U/L ALT 22 20 (0-31) U/L Alkaline Phosphatase 64 59 (39-117) U/L Albumin 4.0 3.5 (3.5-5.0) g/dL Urine 02/05/22 Range/Units 21:53 Urine Color Dark Yellow Urine Appearance Cloudy Urine pH 5.5 (5.0-9.0) Ur Specific [place] >= 1.030 H (1.005-1.025) Urine Protein Trace (Neg-Trace) mg/dL Urine Glucose (UA) Negative (Negative) mg/dL Assessment and Plan (1) Diarrhea: Status: Acute Cdiff,not severe with no fever and no abnormal creatinine or large leukocytosis. (2) Abdominal pain: Status: Acute Plan Continue po Vancomycin 125 mg every 6 hours Would give for 10 days and then taper to tid,bid,daily and every other day on weekly intervals and then three times a week (,,Wed 125 single dose) I dont think Dificid would add anything at this point. GI consult could rule out other sources
[2022-02-06] MEDS: Pantoprazole Sodium 40 MG/10 ML VIAL IVPUSH (18:15)
[2022-02-06] MEDS: Venlafaxine HCl ER 150 MG CAP.ER.24H PO (20:44)
[2022-02-06] MEDS: Topiramate 100 MG TABLET PO (20:44)
[2022-02-07] MEDS: vancomycin HCL 125 MG CAPSULE PO ×4 (03:53→21:27)
[2022-02-07 04:00] VITALS: BP 106/66; PULSE 80; RESP 15; TEMP 36.2; O2SAT 99
[2022-02-07] MEDS: Pantoprazole Sodium 40 MG/10 ML VIAL IVPUSH ×2 (06:21→15:34)
[2022-02-07] MEDS: Dextrose 5 % and 0.45 % NaCl 1,000 ML 100 ML IVCONT ×2 (06:21→15:42)
[2022-02-07 06:55] LABS: MANUAL DIFF FLAG NO
[2022-02-07 07:01] LABS: Basophils Percent Auto 0.5 % (0-2); Eosinophils Absolute Auto 0.1 X10*3/uL (0.0-0.4); Eosinophils Percent Auto 1.8 % (0-4); Hematocrit 42.9 % (37.0-47.0); Hemoglobin 13.8 g/dl (12.0-16.0); Imm Gran Abs Auto 0.02 X10*3/uL (0.00-0.03); Imm Gran Pct Auto 0.3 % (0.0-0.4); Lymphocytes Absolute Auto 2.9 X10*3/uL (1.2-4.9); Lymphocytes Percent Auto 39.5 % (20-40); Mean Corpuscular HGB Conc 32.2 g/dl (31.0-35.0); Mean Corpuscular Hemoglobin 26.5 pg (27.0-33.0); Mean Corpuscular Volume 82.5 fL (80.0-98.0); Mean Platelet Volume 10.9 fL (9.4-12.3); Monocytes Absolute Auto 0.6 X10*3/uL (0.1-1.2); Monocytes Percent Auto 7.9 % (2-11); Neutrophils Absolute Auto 3.7 x10*3/uL (2.0-8.3); Platelet Count 335 X10*3/uL (160-400); White Blood Count 7.3 X10*3/uL (4.8-10.8)
[2022-02-07 07:25] LABS: Alanine Aminotransferase 23 U/L (0-31); Albumin Level 3.6 g/dL (3.5-5.0); Alkaline Phosphatase 58 U/L (39-117); Anion Gap 11 (12-20); Aspartate Amino Transferase 13 U/L (5-31); Bilirubin Total 0.3 mg/dL (0.0-1.0); Blood Urea Nitrogen 5 mg/dL (9-16); Calcium 8.8 mg/dL (8.4-10.2); Carbon Dioxide 22 mmol/L (22-29); Chloride 112 mmol/L (96-108); Creatinine Clr Calc Pharmacy 68.9; Estimated Glomerular Filt Rate > 60; Glucose Fasting 92 mg/dL (60-99); Potassium 4.1 mmol/L (3.3-5.1); Sodium 141 mmol/L (135-145); Total Protein 6.2 g/dL (6.5-8.0)
[2022-02-07 08:00] VITALS: BP 104/53; PULSE 81; RESP 12; TEMP 37.4; O2SAT 100
[2022-02-07] MEDS: Multivitamin TABLET 1 TAB PO (08:53)
[2022-02-07] MEDS: Venlafaxine HCl ER 150 MG CAP.ER.24H PO ×2 (08:53→21:28)
[2022-02-07] MEDS: busPIRone HCl 5 MG TABLET 7.5 MG PO ×3 (08:53→21:27)
[2022-02-07] MEDS: Acetaminophen 325 MG TABLET 650 MG PO (08:57)
--- NOTE | 2022-02-07 11:46 | HO.PM.IMPN ---
Subjective Subjective Date of Service: 02/07/22 Interval History: No acute issues overnight. Continues with diarrhea; wanting to eat Review of Systems Denies chest pain Denies shortness of breath Denies fever chills admits to nausea and diarrhea Physical Exam Vital Signs: Vital Signs: Last Vital Signs Temp 99.4 F 02/07/22 08:00 Pulse 81 02/07/22 08:00 Resp 12 02/07/22 08:00 BP 104/53 L 02/07/22 08:00 Pulse Ox 100 02/07/22 08:00 O2 Del Method 02/07/22 08:00 O2 Flow Rate 2 02/06/22 15:04 BMI result Body Mass Index 31.1 Const: Other: No acute issues Resp: Other: Clear to auscultation bilaterally no rales rhonchi wheezes Cardio: Other: No S4; positive S1-S2; no S3 murmurs rubs or gallops GI: Other: Soft nontender nondistended. No overt peritoneal signs Extrem: Other: No edema bilaterally Objective Data Active Medications Acetaminophen (Acetaminophen 325 Mg Tablet) 650 mg PO Q6H PRN PRN Reason: Pain, Mild (Pain Scale 1-3) Last Admin: 02/07/22 08:57 Dose: 650 mg Documented By: AMARA Buspirone HCl (Buspirone Hcl 5 Mg Tablet) 7.5 mg PO TID [facility] Last Admin: 02/07/22 08:53 Dose: 7.5 mg Documented By: AMARA Dextrose/Sodium Chloride (D51/2ns) 1,000 mls @ 100 mls/hr IVCONT .Q10H [facility] Last Admin: 02/07/22 06:21 Dose: 100 mls/hr Documented By: BRIAN Melatonin (Melatonin 3 Mg Tablet) 6 mg PO BEDTIME PRN PRN Reason: Insomnia Multivitamins/Vitamin C (Multivitamin Tablet) 1 tab PO DAILY [facility] Last Admin: 02/07/22 08:53 Dose: 1 tab Documented By: AMARA Pt Own (Norgestimate -Ethinyl Estradiol [ Avelina] 0.25-35 Mg-Mcg Tablet) 1 tab PO BEDTIME [facility] Last Admin: 02/06/22 20:45 Dose: 1 tab Documented By: BRIAN Pantoprazole Sodium (Pantoprazole Sodium 40 Mg/10 Ml Vial) 40 mg IVPUSH BID@2502,2005 [facility] Last Admin: 02/07/22 06:21 Dose: 40 mg Documented By: BRIAN Pharmacy Consult (Consult Rx Perform Med Rec) 1 each MISCELLANE ONCE PRN PRN Reason: Consult order Senna (Sennosides 8.6 Mg Tablet) 17.2 mg PO BEDTIME PRN PRN Reason: Constipation Sodium Chloride (0.9 % Sodium Chloride Flush 3 Ml Syringe) 3 ml IVFLUSH QSHIFT [facility] Last Admin: 02/07/22 08:54 Dose: Not Given Documented By: AMARA Non-Admin Reason: IV Running Topiramate (Topiramate 100 Mg Tablet) 100 mg PO BEDTIME [facility] Last Admin: 02/06/22 20:44 Dose: 100 mg Documented By: BRIAN Vancomycin HCl (Vancomycin Hcl 125 Mg Capsule) 125 mg PO Q6H [facility] Last Admin: 02/07/22 08:55 Dose: 125 mg Documented By: AMARA Venlafaxine HCl (Venlafaxine Hcl Er 150 Mg Cap.Er.24h) 150 mg PO BID [facility] Last Admin: 02/07/22 08:53 Dose: 150 mg Documented By: AMARA Labs CBC & Chem 7: 02/07/22 06:40 02/07/22 06:40 Labs: Laboratory Results - last 24 hr 02/07/22 02/07/22 06:40 06:40 MCV 82.5 MCH 26.5 L MCHC 32.2 RDW 14.0 Plt Count 335 D MPV 10.9 Immature Gran % (Auto) 0.3 Neut % (Auto) 50.0 Lymph % (Auto) 39.5 Elbert % (Auto) 7.9 Eos % (Auto) 1.8 Baso % (Auto) 0.5 Lymph # (Auto) 2.9 Elbert # (Auto) 0.6 Eos # (Auto) 0.1 Baso # (Auto) 0.0 Abs Immat Gran (auto) 0.02 Absolute Neuts (auto) 3.7 Absolute Nucleated RBC 0.000 Nucleated RBC % (auto) 0.0 Anion Gap 11 L Estim Creat Clear Calc 68.9 Estimated GFR > 60 Fasting Glucose 92 Calcium 8.8 Total Bilirubin 0.3 AST 13 ALT 23 Alkaline Phosphatase 58 Total Protein 6.2 L Albumin 3.6 Microbiology Microbiology Results: Microbiology 02/05/22 Unknown Urine Culture - Final Urine clean catch - Urine hall top No growth. 02/06/22 01:43 Blood Culture - Preliminary Blood - Venous No growth after 24 hours. 02/06/22 00:27 Blood Culture - Preliminary Blood - Venous No growth after 24 hours. Assessment and Plan (1) Clostridium difficile infection: Status: Acute Plan 31-year-old female with a past medical history of anxiety, depression presented to the hospital with a chief complaint of diarrhea. noted to have clustered in difficile colitis. Admitted for further management. 1.C diff colitis: -Continue p.o. vancomycin q6h x 28 days (07/21) -Per MORELIA Mohr as outpatient -advance diet DVT prophylaxis: SCD boots Code status: Full code Requires ongoing hospitalization for IV volume repletion related to C diff diarrhea Quality Stroke Does the patient have a stroke diagnosis?: No VTE Prior VTE?: No VTE Risk Level:: Medical - moderate - high VTE Device Contraindication: Treatment Not Indicated VTE Drug Contraindication: N/A - Med Ordered
[2022-02-07 12:00] VITALS: BP 103/67; PULSE 74; RESP 16; TEMP 36.4; O2SAT 100
--- NOTE | 2022-02-07 12:57 | P.CNGI_ITS ---
History of Present Illness Data of Consult Service Date: 02/07/22 Requesting physician: Cordell Bustillo Primary Care Provider: Unknown Physician HPI Reason for consult: C Diff This is a 31-year-old female with past medical history of recent C diff infection, who is in the hospital for another episode of C diff colitis. Gastroenterology has been consulted for evaluation for other sources. History was obtained from the patient as well as her mother in attendance. She tells me that in November, she had to get antibiotics after a cat bite. Following that, she had diarrhea which was initially presumed to be antibiotic associated diarrhea. However, when the diarrhea persisted she was tested for C diff which was positive. She was then given Flagyl and vancomycin in December. This imp roved the diarrhea, only to return in a couple of weeks. Currently, she has been having 10-12 completely watery bowel movements a day. Associated with postural hypotension, weakness and fatigue. Sometimes chills. She denies any fevers, nausea, vomiting. Has had diffuse abdominal cramping and pain that gets worse with food intake and bowel movement. Has also noticed weight loss in the last 2 months. Workup so far shows positive C diff with imaging suggestive of left-sided colitis. She has been on p.o. vancomycin since yesterday. Infectious Diseases has seen her, and recommended vancomycin with a taper. At the time of my evaluation, patient reports very little improvement so far. Review of Systems Review of Systems: Yes all other systems are reviewed and are negative PMF Past Medical History Medical History (Updated 02/07/22 @ 12:59 by Ida Luciano MD) Infectious colitis Family History Family history: reviewed and not pertinent Social History Social History Household Members: Family Housing: House Do you presently have visiting nurse or other home services: No Patient Tobacco Use Status: Never used Tobacco Use of substances other than those prescribed or required for medical reasons: Yes Substance Use Type: Marijuana Substance Use Frequency: Weekly Currently Displaying Signs/Symptoms of Drug Intoxication Withdrawal: No Have you been hit, kicked, punched, or otherwise hurt by someone within the past year? If so, by whom?: No Do you feel safe in your current relationship?: No Is there a partner from a previous relationship who is making you feel unsafe now?: No Are you made to feel afraid or neglected: No Advance Directives: No Do you have thoughts of harming others: None Do you have a plan to hurt others: No Plan Recently lost weight without trying: Yes How much weight loss: 24-33 pounds Eating poorly because of decreased appetite: No Nutrition screen score: 5 Nutrition Risks: Poor intake 0-25% >4 days Patient : No service: No Meds Allergies Allergy/AdvReac Type Severity Reaction Status Date / Time No Known Allergies Allergy Unverified 02/08/20 16:04 [No Known Allergies*] Active Medications: Current Medications Acetaminophen (Acetaminophen 325 Mg Tablet) 650 mg PO Q6H PRN PRN Reason: Pain, Mild (Pain Scale 1-3) Last Admin: 02/07/22 08:57 Dose: 650 mg Buspirone HCl (Buspirone Hcl 5 Mg Tablet) 7.5 mg PO TID [facility] Last Admin: 02/07/22 08:53 Dose: 7.5 mg Dextrose/Sodium Chloride (D51/2ns) 1,000 mls @ 100 mls/hr IVCONT .Q10H [facility] Last Admin: 02/07/22 06:21 Dose: 100 mls/hr Melatonin (Melatonin 3 Mg Tablet) 6 mg PO BEDTIME PRN PRN Reason: Insomnia Multivitamins/Vitamin C (Multivitamin Tablet) 1 tab PO DAILY [facility] Last Admin: 02/07/22 08:53 Dose: 1 tab Pt Own (Norgestimate -Ethinyl Estradiol [ Avelina] 0.25-35 Mg-Mcg Tablet) 1 tab PO BEDTIME [facility] Last Admin: 02/06/22 20:45 Dose: 1 tab Pantoprazole Sodium (Pantoprazole Sodium 40 Mg/10 Ml Vial) 40 mg IVPUSH BID@0630,1630 [facility] Last Admin: 02/07/22 06:21 Dose: 40 mg Pharmacy Consult (Consult Rx Perform Med Rec) 1 each MISCELLANE ONCE PRN PRN Reason: Consult order Senna (Sennosides 8.6 Mg Tablet) 17.2 mg PO BEDTIME PRN PRN Reason: Constipation Sodium Chloride (0.9 % Sodium Chloride Flush 3 Ml Syringe) 3 ml IVFLUSH QSHIFT [facility] Last Admin: 02/07/22 08:54 Dose: Not Given Topiramate (Topiramate 100 Mg Tablet) 100 mg PO BEDTIME [facility] Last Admin: 02/06/22 20:44 Dose: 100 mg Vancomycin HCl (Vancomycin Hcl 125 Mg Capsule) 125 mg PO Q6H [facility] Last Admin: 02/07/22 08:55 Dose: 125 mg Venlafaxine HCl (Venlafaxine Hcl Er 150 Mg Cap.Er.24h) 150 mg PO BID [facility] Last Admin: 02/07/22 08:53 Dose: 150 mg Home Medications Medication Instructions Recorded Confirmed Last Taken Type buspirone 7.5 mg tablet 1 tab PO TID 02/06/22 02/06/22 02/05/22 History multivitamin 1 tab PO DAILY 02/06/22 02/06/22 02/05/22 History norgestimate 0.25 mg-ethinyl 1 tab PO DAILY 02/06/22 02/06/22 02/05/22 History estradiol 35 mcg tablet (Avelina) topiramate 100 mg tablet 1 tab PO BEDTIME 02/06/22 02/06/22 02/05/22 History topiramate 200 mg tablet 1 tab PO BEDTIME 02/06/22 02/06/22 02/05/22 History venlafaxine 150 mg 1 cap PO BID 02/06/22 02/06/22 02/05/22 History capsule,extended release 24 hr Physical Exam Vital Signs: Vital Signs: Last Vital Signs Temp 97.5 F 02/07/22 12:00 Pulse 74 02/07/22 12:00 Resp 16 02/07/22 12:00 BP 103/67 02/07/22 12:00 Pulse Ox 100 02/07/22 12:00 O2 Del Method 02/07/22 12:00 O2 Flow Rate 2 02/06/22 15:04 BMI result Body Mass Index 31.1 Gen appear: No acute distress, well nourished HEENT: no icterus, no cervical lymphadenopathy Chest: No overt resp distress CVS: S1/S2, regular Abd: soft, nontender, nondistended Psych: Stable affect, answering questions appropriately Neuro: A/Ox3 noted to move all extremities spontaneously Ext: no peripheral edema Results Labs CBC & Chem 7: 02/07/22 06:40 02/07/22 06:40 Labs: Short CBC 02/07/22 Range/Units 06:40 WBC 7.3 (4.8-10.8) X10*3/uL Hgb 13.8 (12.0-16.0) g/dl Hct 42.9 (37.0-47.0) % Plt Count 335 D (160-400) X10*3/uL BMP 02/07/22 06:40 Sodium 141 Potassium 4.1 Chloride 112 H Carbon Dioxide 22 BUN 5 L Creatinine 1.05 Calcium 8.8 Liver Function 02/07/22 Range/Units 06:40 Total Bilirubin 0.3 (0.0-1.0) mg/dL AST 13 (5-31) U/L ALT 23 (0-31) U/L Alkaline Phosphatase 58 (39-117) U/L Albumin 3.6 (3.5-5.0) g/dL Microbiology Microbiology Results: Microbiology 02/05/22 Unknown Urine clean catch - Urine hall top Urine Culture - Final No growth. 02/06/22 01:43 Blood - Venous Blood Culture - Preliminary No growth after 24 hours. 02/06/22 00:27 Blood - Venous Blood Culture - Preliminary No growth after 24 hours. Assessment and Plan (1) Clostridium difficile infection: Status: Acute (2) Infectious colitis: Status: Acute Plan Patient has diarrhea and infectious colitis likely secondary to C diff infection. She is currently on p.o. vancomycin with plan for a taper. This is the most likely cause for her wall thickening and colitis seen on CT scan. Agree with current management. However, patient was encouraged to follow up in the office if her symptoms do not get better, for further workup. I have sent a message to my team to set office follow-up for her in 8 weeks. Procedures Date of Service Date of Service: 02/07/22
[2022-02-07 15:32] VITALS: BP 108/69; PULSE 83; RESP 16; TEMP 37.3; O2SAT 100
--- NOTE | 2022-02-07 18:57 | PC.NURSE ---
Pt A+Ox4, independent in room. SR on monitor, satting 100% on room air, lungs clear. States she is still experiencing frequent loose stools. C/o back discomfort at 0830, PRN tylenol given per JUL orders. Pt states with good relief and no further c/o pain. Call aranda within reach, bed locked, encouraged to call for any assistance. Report given to overnight RN.
[2022-02-07 19:17] VITALS: BP 105/65; PULSE 79; RESP 20; TEMP 36.8; O2SAT 100
[2022-02-07] MEDS: Topiramate 100 MG TABLET PO (21:27)
[2022-02-07 23:44] VITALS: BP 91/53; PULSE 65; RESP 20; TEMP 36.8; O2SAT 97
[2022-02-08] MEDS: vancomycin HCL 125 MG CAPSULE PO ×2 (02:58→09:09)
[2022-02-08 03:22] VITALS: BP 109/66; PULSE 74; RESP 15; TEMP 36.2; O2SAT 100
[2022-02-08] MEDS: Pantoprazole Sodium 40 MG/10 ML VIAL IVPUSH (06:43)
[2022-02-08 08:00] VITALS: BP 105/52; PULSE 62; RESP 12; TEMP 36.4; O2SAT 98
[2022-02-08] MEDS: Venlafaxine HCl ER 150 MG CAP.ER.24H PO (09:09)
[2022-02-08] MEDS: busPIRone HCl 5 MG TABLET 7.5 MG PO (09:09)
[2022-02-08] MEDS: Multivitamin TABLET 1 TAB PO (09:09)
--- NOTE | 2022-02-08 11:00 | PM.DS ---
DS: Providers Provider Date of Service: 02/08/22 Date of admission: 02/05/22 22:57 Date of discharge: 02/08/22 Primary care physician: Unknown Physician Consults: 02/05/22 22:57 Consult to Infectious Diseases Routine Consulting Provider: Latasha Kaur Reason for consultation: diarrhea 02/05/22 22:59 Consult to Gastroenterology Routine Consulting Provider: Ida Luciano Reason for consultation: diarrhea; blood in stool Has provider been notified: No DS: Diagnosis Discharge Diagnosis (1) Clostridium difficile infection: Status: Acute (2) Infectious colitis: Status: Acute DS: Summary Hospital Course Hospital Course: 31-year-old female who obtained a CT bite sometime in November was started on antibiotics. Fall in a course of antibiotics she initially had diarrhea which presumed to be after the antibiotic. When diarrhea did not subside she was tested for C diff which was positive. She was given Flagyl and vancomycin December. This improved the diarrhea however return a couple weeks after she stopped the medicine. When she presented she was having 10-12 watery bowel movements a day with dizziness weakness and fatigue. Food to get exacerbated her condition. She presented to the ER on 02/[address] scan of the abdomen: Demonstrated wall thickening of the left hemicolon suggestive of colitis. She was seen in consultation by ID who recommended a more protracted vancomycin course; also seen in consult by GI who will follow-up in 8 weeks to set up colonoscopy. Over the next 48 hours her symptoms improved on p.o. vancomycin she will be discharged on a q.i.d. dosing for 1 month or as per ID. Time Spent with Patient Time attestation: Total time spent providing and/or coordinating discharge services: Discharge coordination time: Greater than 30 minutes Quality: Safe Use of Opioids Does Pt have an Active Cancer Diagnosis on the Problem List?: No Quality: Stroke Does the patient have a stroke diagnosis?: No Physical Exam Vital Signs: Vital Signs: Last Vital Signs Temp 97.5 F 02/08/22 08:00 Pulse 62 02/08/22 08:00 Resp 12 02/08/22 08:00 BP 105/52 L 02/08/22 08:00 Pulse Ox 98 02/08/22 08:00 O2 Del Method 02/08/22 08:00 O2 Flow Rate 2 02/06/22 15:04 BMI result Body Mass Index 31.1 DS: Data Data Completed and Pending Labs on day of discharge: Preliminary micro results at discharge 02/06/22 01:43 Blood Culture - Preliminary Blood - Venous No growth after 48 hours. 02/06/22 00:27 Blood Culture - Preliminary Blood - Venous No growth after 48 hours. Discharge Plan Discharge Patient Disposition: Home, Self-Care Discharge Diagnosis: Clostridium difficile colitis Referrals: Physician,Unknown J [Primary Care Provider] - 1 Week Discharge Medications: New vancomycin 125 mg Capsule 125 mg PO Q6H Qty: 120 5RF Continued norgestimate-ethinyl estradiol [Avelina] 0.25-35 mg-mcg tablet 1 tab PO DAILY buspirone 7.5 mg tablet 1 tab PO TID topiramate 200 mg tablet 1 tab PO BEDTIME topiramate 100 mg tablet 1 tab PO BEDTIME multivitamin Tablet 1 tab PO DAILY venlafaxine 150 mg capsule,extended release 24hr 1 cap PO BID Discharge Orders: Discharge Order (Routine); Ordered 02/08/22 Ordered By: Ruiz Batista Diet: Advance to usual diet Activity on Discharge: As tolerated Stand Alone Forms: Patient Portal Discharge page, Work/School Release Care Plan Goals: Continue to take vancomycin 4 times a day until instructed otherwise by Dr. Kaur Health Concerns: Dr. Ibanez office will call you with an appointment for infusion; Dr Luciano's office will call you for an 8 week follow-up to set up a colonoscopy Plan of Treatment: Advance her diet as tolerated Assessment: See discharge summary
--- NOTE | 2022-02-08 11:38 | MHC.CM.PN ---
PT TO DC HOME TODAY WITH NO SERVICES PT TO ARRANGE TRANSPORT
[2022-02-10 15:21] LABS: Anti Nuclear Antibody Screen NEGATIVE (NEGATIVE)
== END 2022-02-08 14:37 | disposition home or self-care (01) | DRG 248 ==
LOC: HO.ED 02-06 00:14 → HO.EDOVER 02-06 01:43 → HO.IMC 02-06 13:00
PROVIDERS: Physician Assistant; Admitting Provider Hospitalist; Emergency Provider Emergency Medicine; PCP Internal Medicine; Visit Provider Hospitalist
DX: A04.72 Enterocolitis due to Clostridium difficile, not specified as recurrent (principal); F32.A Depression, unspecified; F41.9 Anxiety disorder, unspecified; Z20.822 Contact with and (suspected) exposure to COVID-19; Z79.3 Long term (current) use of hormonal contraceptives; Z79.899 Other long term (current) drug therapy
CPT/HCPCS: 36415; 74177; 80048; 80053; 80076; 81001; 81003; 81025; 83605; 83690; 84484; 84702; 85025; 86038; 86039; 86140; 87040; 87086; 87177; 87209; 87324; 87493; 87635; 89055; 93005; 99219; 99285; Q9967